=== PATIENT | male | born 1960 | race Hispanic/Latino ===

== ENCOUNTER 2018-01-14 18:28 | Emergency (ER) | payer BC ==
[2018-01-14 19:22] LABS: Absolute Lymphocytes (CBC) 1.4 K/uL (0.7-4.9); Absolute Monocytes 0.6 K/uL (0.1-1.3); Absolute Neutrophil 3.6 K/uL (1.8-8.0); Basophils % 0.6 % (0-1.3); Eosinophils % 5.8 % (0-4.4); MCH 27.3 pg (27.0-35.0); MCV 81.6 fL (80-100); MPV 8.5 fL (7.6-11.3); Monocytes % 10.4 % (3.3-12.3); Protime INR 0.92; RBC Red Blood Cell Count 4.53 M/uL (4.33-5.43)
--- NOTE | 2018-01-14 19:27 | RAD REPORT ---
EXAM DESCRIPTION: Renata Single View01/14/2018 7:01 pm CLINICAL HISTORY: Chest pain COMPARISON: none FINDINGS: The right hemidiaphragm appears elevated . The left lung appears clear peer The heart is m ildly enlarged. A hiatal hernia suspected IMPRESSION: Right hemidiaphragm appears elevated. A small right pleural effusion or thickening may b e present. Further evaluation with a lateral chest film may be helpful
[2018-01-14 19:31] LABS: Potassium 3.1 mEq/L (3.6-5.0)
[2018-01-14 19:37] LABS: Albumin 3.6 g/dL (3.2-5.5); Bilirubin Direct 0.1 mg/dL (0-0.2); Bilirubin Total 0.4 mg/dL (0.3-1.2); Magnesium 1.9 mg/dL (1.8-2.5)
--- NOTE | 2018-01-14 20:08 | RAD REPORT ---
EXAM DESCRIPTION: Renata Marical And Buster (2 Views)01/14/2018 7:55 pm CLINICAL HISTORY: Chest pain COMPARISON: January 14, 2018. FINDINGS: The right hemidiaphragm is elevated. Right pleural thickening is are likely secondary to old rib fractures. A moderate hiatal hernia is present. The lungs appear clear of acute infiltrate. The heart is probabl y mildly enlarged IMPRESSION: No acute abnormalities displayed
[2018-01-14] MEDS ORDERED: POTASSIUM CL SA 10 MEQ TAB PO ONE ×3 (20:12→20:13)
--- NOTE | 2018-01-14 22:06 | EDPHYS ---
Physician Documentation [facility] Name: Xu Beard Age: 57 yrs Sex: Male : 1960 Arrival Date: 01/14/2018 Time: 18:29 Bed 6 Private MD: ED Physician Alfonso South HPI: 01/14 19:14 This 57 yrs old Male presents to ER via EMS with complaints of Chest Pain > 30 jr8 y/o. 19:14 The patient or guardian reports chest pain that is located primarily in the anterior jr8 chest wall, left. Onset: acutely, today. The pain does not radiate. Associated signs and symptoms: Pertinent positives: shortness of breath. The chest pain is described as sharp. Duration: The patient or guardian reports multiple episodes, the episodes last approximately 10 second(s). Modifying factors: The symptoms are alleviated by nothing. the symptoms are aggravated by nothing. Severity of pain: At its worst the pain was moderate in the emergency department the pain has improved. The patient has not experienced similar symptoms in the past. The patient has not recently seen a physician. Historical: - Allergies: 18:34 No Known Allergies; jl7 - Home Meds: 18:34 metformin 250mg Oral tab [Active]; lisinopril 25 mg Oral tab [Active]; jl7 - PMHx: 18:34 Diabetes - NIDDM; Hypertension; jl7 - PSHx: 18:34 left knee; jl7 - Immunization history:: Adult Immunizations up to date. - Social history:: Smoking status: Patient/guardian denies using tobacco. - Ebola Screening: : No symptoms or risks identified at this time. ROS: 19:14 Eyes: Negative for injury, pain, redness, and discharge, ENT: Negative for injury, jr8 pain, and discharge, Neck: Negative for injury, pain, and swelling, Respiratory: Negative for shortness of breath, cough, wheezing, and pleuritic chest pain, Abdomen/GI: Negative for abdominal pain, nausea, vomiting, diarrhea, and constipation, Back: Negative for injury and pain, MS/Extremity: Negative for injury and deformity, Skin: Negative for injury, rash, and discoloration, Neuro: Negative for headache, weakness, numbness, tingling, and seizure. 19:14 Cardiovascular: Positive for chest pain, Negative for edema, orthopnea, palpitations, paroxysmal nocturnal dyspnea. Exam: 19:14 Eyes: Pupils equal round and reactive to light, extra-ocular motions intact. Lids and jr8 lashes normal. Conjunctiva and sclera are non-icteric and not injected. Cornea within normal limits. Periorbital areas with no swelling, redness, or edema. ENT: Nares patent. No nasal discharge, no septal abnormalities noted. Tympanic membranes are normal and external auditory canals are clear. Oropharynx with no redness, swelling, or masses, exudates, or evidence of obstruction, uvula midline. Mucous membranes moist. Neck: Trachea midline, no thyromegaly or masses palpated, and no cervical lymphadenopathy. Supple, full range of motion without nuchal rigidity, or vertebral point tenderness. No Meningismus. Chest/axilla: Normal chest wall appearance and motion. Nontender with no deformity. No lesions are appreciated. Cardiovascular: Regular rate and rhythm with a normal S1 and S2. No gallops, murmurs, or rubs. Normal PMI, no JVD. No pulse deficits. Respiratory: Lungs have equal breath sounds bilaterally, clear to auscultation and percussion. No rales, rhonchi or wheezes noted. No increased work of breathing, no retractions or nasal flaring. Abdomen/GI: Soft, non-tender, with normal bowel sounds. No distension or tympany. No guarding or rebound. No evidence of tenderness throughout. Back: No spinal tenderness. No costovertebral tenderness. Full range of motion. Skin: Warm, dry with normal turgor. Normal color with no rashes, no lesions, and no evidence of cellulitis. MS/ Extremity: Pulses equal, no cyanosis. Neurovascular intact. Full, normal range of motion. Neuro: Awake and alert, GCS 15, oriented to person, place, time, and situation. Cranial nerves II-XII grossly intact. Motor strength 5/5 in all extremities. Sensory grossly intact. Cerebellar exam normal. Normal gait. Vital Signs: 18:34 BP 156 / 102; Pulse 63; Resp 16 S; Pulse Ox 97% on R/A; Weight 104.33 kg (R); Height 5 jl7 ft. 10 in. (177.80 cm) (R); Pain 0/10; 18:49 Temp 97.8; jl7 19:30 BP 168 / 109; Pulse 57; Resp 20; Pulse Ox 99% on R/A; tl2 20:33 BP 169 / 108; Pulse 60; Resp 18; Pulse Ox 100% on R/A; Pain 0/10; tl2 20:58 BP 159 / 104; Pulse 59; Resp 20; Pulse Ox 100% on R/A; tl2 21:55 BP 185 / 109; Pulse 65; Resp 18; Pulse Ox 99% on R/A; tl2 22:03 BP 170 / 87; Pulse 61; Resp 18; Pulse Ox 98% on R/A; tl2 18:34 Body Mass Index 33.00 (104.33 kg, 177.80 cm) jl7 MDM: 18:37 Patient medically screened. jr8 22:05 HEART Score: History: Slightly Suspicious (0), ECG: Normal (0), Age: > 45 and < 65 jr8 years (1), Risk Factors: > or = 3 Risk factors for atherosclerotic disease (2), [Hypertension] [DM] [Obesity] Troponin: < or = 1 x Normal Limit (0). The patient was not given aspirin in the Emergency Department. Patient reports taking aspirin within the past 24 hours. Data reviewed: vital signs, nurses notes, lab test result(s), EKG, radiologic studies, plain films, and as a result, I will discharge patient. Data interpreted: Pulse oximetry: on room air is 98 %. Interpretation: normal. 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 01/14 18:38 Order name: Basic Metabolic Panel; Complete Time: 20:01/14 18:38 Order name: BNP; Complete Time: 20:01/14 18:38 Order name: CBC with Diff; Complete Time: 20:01/14 18:38 Order name: LFT's; Complete Time: 20:01/14 18:38 Order name: Magnesium; Complete Time: 20:01/14 18:38 Order name: PT-INR; Complete Time: 20:06 01/14 18:38 Order name: Troponin (emerg Dept Use Only); Complete Time: 20:06 01/14 18:38 Order name: XRAY Chest (1 view); Complete Time: 19:30 01/14 18:38 Order name: EKG; Complete Time: 18:38 01/14 18:38 Order name: Cardiac monitoring; Complete Time: 18:47 01/14 19:31 Order name: XRAY Chest Pa And Lat (2 Views); Complete Time: 20:16 01/14 19:43 Order name: Urine Dipstick--Ancillary (enter results); Complete Time: 09:08 2 01/14 20:58 Order name: Troponin (emerg Dept Use Only); Complete Time: 22:05 tl2 01/14 18:38 Order name: EKG - Nurse/Tech; Complete Time: 18:47 01/14 18:38 Order name: IV Saline Lock; Complete Time: 18:47 01/14 18:38 Order name: Labs collected and sent; Complete Time: 18:47 01/14 18:38 Order name: O2 Per Protocol; Complete Time: 18:47 01/14 18:38 Order name: O2 Sat Monitoring; Complete Time: 18:47 01/14 18:38 Order name: Urine Dipstick-Ancillary (obtain specimen); Complete Time: 19:40 jr8 Administered Medications: 20:18 Drug: Potassium Chloride 40 mEq Route: PO; tl2 22:50 Follow up: Response: No adverse reaction tl2 Disposition: 01/14/18 22:06 Discharged to Home. Impression: Chest pain, unspecified. - Condition is Stable. - Discharge Instructions: Nonspecific Chest Pain, Aspirin and Your Heart. - Medication Reconciliation Form, Thank You Letter, Antibiotic Education, Prescription Opioid Use form. - Follow up: Fredy Chin MD; When: 2 - 3 days; Reason: Recheck today's complaints, Continuance of care, Re-evaluation by your physician. - Problem is new. - Symptoms have improved. Addendum: 01/19/2018 12:26 Co-signature as Attending Physician, Alfonso South MD. r n Signatures: Dispatcher [employer] EDNE Alfonso South MD MD rn Roszak, Josh, PA PA jr8 Dulce España RN RN tl2 Declan Bender RN RN jl7 Corrections: (The following items were deleted from the chart) 01/14 22:50 22:06 01/14/2018 22:06 Discharged to Home. Impression: Chest pain, unspecified. tl2 Condition is Stable. Forms are Medication Reconciliation Form, Thank You Letter, Antibiotic Education, Prescription Opioid Use. Follow up: Fredy Chin; When: 2 - 3 days; Reason: Recheck today's complaints, Continuance of care, Re-evaluation by your physician. Problem is new. Symptoms have improved. jr8
--- NOTE | 2018-01-14 22:06 | ER ---
Nurse's Notes [facility] Name: Xu Beard Age: 57 yrs Sex: Male : 1960 Arrival Date: 01/14/2018 Time: 18:29 Bed 6 Private MD: Diagnosis: Chest pain, unspecified Presentation: 01/14 18:29 Presenting complaint: EMS states: Pt was sitting at work and had sudden onset of chest jl7 pain that "knocked the breath of of him", rated 8/10, happened 5 times. Pt denied pain when we got there. Normal sinus on the EKG. Transition of care: patient was not received from another setting of care. Onset of symptoms was January 14, 2018. Risk Assessment: Do you want to hurt yourself or someone else? Patient reports no desire to harm self or others. Initial Sepsis Screen: Does the patient meet any 2 criteria? No. Patient's initial sepsis screen is negative. Does the patient have a suspected source of infection? No. Patient's initial sepsis screen is negative. Care prior to arrival: IV initiated. 20 GA, in the left antecubital area, Glucose check: 108. 18:29 Method Of Arrival: EMS: [facility] jl7 18:29 Acuity: HAYLEE 3 jl7 Triage Assessment: 18:34 General: Appears in no apparent distress. uncomfortable, Behavior is calm, cooperative, jl7 appropriate for age. Pain: Complains of pain in anterior aspect of left upper chest Pain does not radiate. Pain currently is 0 out of 10 on a pain scale. at worst was 8 out of 10 on a pain scale. Quality of pain is described as stabbing, Pain began 1 hour ago. Is intermittent. EENT: No signs and/or symptoms were reported regarding the EENT system. Neuro: Level of Consciousness is awake, alert, obeys commands, Oriented to person, place, time, situation. Cardiovascular: Heart tones S1 S2 present Patient's skin is warm and dry. Respiratory: Airway is patent Respiratory effort is even, unlabored, Respiratory pattern is regular, symmetrical, Breath sounds are clear bilaterally. GI: No signs and/or symptoms were reported involving the gastrointestinal system. : No signs and/or symptoms were reported regarding the genitourinary system. Derm: Skin is pink, warm \\T\\ dry. Musculoskeletal: No signs and/or symptoms reported regarding the musculoskeletal system. Historical: - Allergies: 18:34 No Known Allergies; jl7 - Home Meds: 18:34 metformin 250mg Oral tab [Active]; lisinopril 25 mg Oral tab [Active]; jl7 - PMHx: 18:34 Diabetes - NIDDM; Hypertension; jl7 - PSHx: 18:34 left knee; jl7 - Immunization history:: Adult Immunizations up to date. - Social history:: Smoking status: Patient/guardian denies using tobacco. - Ebola Screening: : No symptoms or risks identified at this time. Screenin:37 Abuse screen: Denies threats or abuse. Denies injuries from another. Nutritional jl7 screening: No deficits noted. Tuberculosis screening: No symptoms or risk factors identified. Fall Risk IV access (20 points). Total Castellanos Fall Scale indicates No Risk (0-24 pts). Assessment: 18:37 General: See triage assessment. jl7 19:30 General: Appears in no apparent distress. comfortable, Behavior is cooperative, tl2 appropriate for age, anxious. Pain: Denies pain. Neuro: Level of Consciousness is awake, alert, obeys commands, Oriented to person, place, time, situation. Cardiovascular: Denies chest pain, Pt reported episode of chest pain at work but has denied pain since arrival to ER. Respiratory: Airway is patent Respiratory effort is even, unlabored, Respiratory pattern is regular, symmetrical. GI: No signs and/or symptoms were reported involving the gastrointestinal system. : No signs and/or symptoms were reported regarding the genitourinary system. Derm: Skin is pink, warm \\T\\ dry. 20:33 Reassessment: Patient appears in no apparent distress at this time. No changes from tl2 previously documented assessment. Patient and/or family updated on plan of care and expected duration. Pain level reassessed. Patient is alert, oriented x 3, equal unlabored respirations, skin warm/dry/pink. awaiting further orders. Pt resting comfortably, family at bedside. No questions or concerns at this time. 20:58 Reassessment: repeat troponin sent. tl2 21:55 Reassessment: Patient appears in no apparent distress at this time. Patient and/or tl2 family updated on plan of care and expected duration. Pain level reassessed. Patient is alert, oriented x 3, equal unlabored respirations, skin warm/dry/pink. 22:49 Reassessment: Patient appears in no apparent distress at this time. Patient and/or tl2 family updated on plan of care and expected duration. Pain level reassessed. Patient is alert, oriented x 3, equal unlabored respirations, skin warm/dry/pink. Pt verbalized understanding of discharge instructions, need for follow up. Vital Signs: 18:34 BP 156 / 102; Pulse 63; Resp 16 S; Pulse Ox 97% on R/A; Weight 104.33 kg (R); Height 5 jl7 ft. 10 in. (177.80 cm) (R); Pain 0/10; 18:49 Temp 97.8; jl7 19:30 BP 168 / 109; Pulse 57; Resp 20; Pulse Ox 99% on R/A; tl2 20:33 BP 169 / 108; Pulse 60; Resp 18; Pulse Ox 100% on R/A; Pain 0/10; tl2 20:58 BP 159 / 104; Pulse 59; Resp 20; Pulse Ox 100% on R/A; tl2 21:55 BP 185 / 109; Pulse 65; Resp 18; Pulse Ox 99% on R/A; tl2 22:03 BP 170 / 87; Pulse 61; Resp 18; Pulse Ox 98% on R/A; tl2 18:34 Body Mass Index 33.00 (104.33 kg, 177.80 cm) jl7 Vitals: 19:30 Cardiac Rhythm Assessment Sinus rhythm. tl2 20:58 Cardiac Rhythm Assessment Sinus rhythm. tl2 ED Course: 18:29 Patient arrived in ED. jl7 18:32 Triage completed. jl7 18:34 Arm band placed on right wrist. jl7 18:37 Med William PA is PHCP. jr8 18:37 Alfonso South MD is Attending Physician. jr8 18:37 Patient has correct armband on for positive identification. Placed in gown. Bed in low jl7 position. Call light in reach. Side rails up X 1. phototypesetting equipment monitor on. Pulse ox on. NIBP on. 18:37 Maintain EMS IV. Dressing intact. Good blood return noted. Site clean \\T\\ dry. Gauge \\T\\ jl 7 site: 20 left AC. Patient maintains SpO2 saturation greater than 95% on room air. 18:56 X-ray completed. Portable x-ray completed in exam room. Patient tolerated procedure bb2 well. 18:57 XRAY Chest (1 view) In Process Unspecified. EDMS 19:10 Araceli Rodriguez, RN is Primary Nurse. ak1 19:12 Report given to MUNIRA Charles. jl7 19:30 No provider procedures requiring assistance completed. IV is patent, is intact. tl2 19:45 Patient moved to radiology via wheelchair. bb2 19:54 X-ray completed. Patient tolerated procedure well. bb2 19:54 Patient moved back from radiology. bb2 19:55 XRAY Chest Pa And Lat (2 Views) In Process Unspecified. EDMS 22:06 Fredy hCin MD is Referral Physician. jr8 22:49 IV discontinued, intact, bleeding controlled, No redness/swelling at site. Pressure tl2 dressing applied. Administered Medications: 20:18 Drug: Potassium Chloride 40 mEq Route: PO; tl2 22:50 Follow up: Response: No adverse reaction tl2 Outcome: 22:06 Discharge ordered by MD. jr8 22:49 Discharged to home ambulatory, with family. tl2 22:49 Condition: stable 22:49 Discharge instructions given to patient, family, Instructed on discharge instructions, follow up and referral plans. Demonstrated understanding of instructions, follow-up care. 22:50 Patient left the ED. tl2 Signatures: Dispatcher [employer] EDKY Med William PA PA jr8 Araceli Rodriguez, RN RN ak1 Dulce España RN RN tl2 Declan Bender RN RN jl7 Madeline Sandoval bb2 Corrections: (The following items were deleted from the chart) 19:32 19:30 Cardiac Rhythm Assessment Sinus [place] tl2 tl2
[2018-01-14 22:39] LABS: Urine Blood 1+ (NEG); Urine Glucose NEGATIVE (NEG); Urine Protein 3+ (NEG); Urine Specific Gravity >1.030 (1.005-1.030); Urine pH 5.5 (5.0-7.0)
--- NOTE | 2018-01-15 06:14 | EKG ---
Test Date: 2018-01-14 Test Time: 18:32:41 Vocal Teacher: EMANUEL MEASUREMENT RESULTS: Intervals: Rate: 65 MT: 146 QRSD: 98 QT: 422 QTc: 438 [place]: P: -21 MT: 146 QRS: 18 T: 11 INTERPRETIVE STATEMENTS: Normal sinus rhythm Normal ECG No previous ECG available for comparison Electronically Signed On 01-15-18 06:14:14 CDT by Fredy Chin
== END 2018-01-14 22:50 | disposition home or self-care (01) ==
LOC: ER 18:28
DX: R07.9 Chest pain, unspecified (principal); E11.9 Type 2 diabetes mellitus without complications; I10 Essential (primary) hypertension
CPT/HCPCS: 36415; 71045; 71046; 80048; 80076; 81003; 83735; 83880; 84484; 85025; 85610; 93005; 99285